=== PATIENT | female | born 1965 | race Caucasian/White ===

== ENCOUNTER 2020-03-06 10:14 | Emergency (ER) | payer MEDICAID ==
[~2020-03-06] VITALS: Ht 167.6 cm; Wt 106.1 kg
[2020-03-06] MEDS ORDERED: LOSA25TA14 PO (10:26)
[2020-03-06] MEDS ORDERED: ANOR1AER PO (10:26)
[2020-03-06] MEDS ORDERED: CYCL-707 PO (10:27)
[2020-03-06] MEDS ORDERED: PERCOCET 5MG/325MG TAB PO ONE (11:15)
--- NOTE | 2020-03-06 11:34 | REPVR ---
PROCEDURE INFORMATION: Exam: CT Lumbar Spine Without Contrast Exam date and time: 03/06/2020 11:13 AM Age: 54 years old Clinical indication: Low back pain; Additional info: Fall with severe pain diff ambulating TECHNIQUE: Imaging protocol: Computed tomography images of the lumbar spine without contrast. Radiation optimization: All CT scans at this facility use at least one of these dose optimization techniques: automated exposure control; mA and/or kV adjustment per patient size (includes targeted exams where dose is matched to clinical indication); or iterative reconstruction. COMPARISON: No relevant prior studies available. FINDINGS: Vertebrae: There is mild focal compression along the right anterior aspect of the superior L2 endplate, appears chronic and probably in association with a Schmorl's node. Vertebral body heights are otherwise intact. There is a minimal, grade 1 spondylolisthesis at L4-L5. Alignment is otherwise maintained. No pars defect is identified. No acute fracture is identified. Discs/Spinal canal/Neural foramina: There is multilevel disc space narrowing, facet arthrosis and marginal osteophyte formation with variable narrowing of several neural foramina. CT is not optimal for the evaluation of the discs, neural foramina or spinal canal or cord. There is probably spinal stenosis at L3-L4 and L4-L5. Vasculature: Atherosclerotic vascular calcifications are noted. Soft tissues: There is no significant paraspinal hematoma. IMPRESSION: 1. No acute fracture or dislocation identified. 2. Spondylosis with probable multilevel spinal stenosis. The discs, neural foramina and spinal canal could be better evaluated by means of MRI as clinically appropriate. Electronically signed by: Bulmaro Vidales On 03/06/2020 11:34:13 AM
[2020-03-06] MEDS ORDERED: PERC5TAB12 PO (11:47)
[2020-03-06 11:58] VITALS: BP 102/65
== END 2020-03-06 12:00 | disposition home or self-care (01) ==
LOC: M ED 10:14
DX: M54.5 Low back pain (principal); R93.7 Abnormal findings on diagnostic imaging of other parts of musculoskeletal system; R26.2 Difficulty in walking, not elsewhere classified; I10 Essential (primary) hypertension; J44.9 Chronic obstructive pulmonary disease, unspecified; Z98.84 Bariatric surgery status